=== PATIENT | female | born 1975 | race American Indian/Alaskan Native ===

== ENCOUNTER 2018-09-25 10:37 | Outpatient (CLI) | payer OTHER | END 2018-09-25 10:38 | disposition home or self-care (01) | LOC: C.VASC 10:37 ==

== ENCOUNTER 2018-10-11 10:16 | Outpatient (CLI) | payer OTHER | END 2018-10-17 09:15 | disposition home or self-care (01) | LOC: C.MRIC 10:16 | DX: M79.674 Pain in right toe(s) (principal) ==